=== PATIENT | male | born 1970 | race African-American/Black ===

== ENCOUNTER 2024-02-22 16:00 | Emergency (ER) | payer MEDICARE, OTHER, SELFPAY ==
[2024-02-22 16:05] VITALS: BP 137/85
--- NOTE | 2024-02-22 16:25 | EDRN ---
Harris Le PA in room w/ pt at this time.
--- NOTE | 2024-02-22 16:31 | ED.GENMED ---
History of Present Illness
General
Chief Complaint: Seizure
Time Seen by Provider: 02/22/24 16:01
History of Present Illness
History of Present Illness:
54-year-old male presents from a group living facility for evaluation after a seizure and resultant head injury. He is at his normal neurologic baseline currently. Has a known seizure disorder for which she takes lacosamide and Depakote. Saw his
neurologist this morning reportedly
Review of Systems
Review of Systems
Allergies reviewed?: Yes
All Other Systems: ROS reviewed and negative except as documented in HPI and ROS
Phy Exam
Physical Exam
Physical Exam:
GEN: Well appearing, NAD, WDWN
HEENT: Normocephalic and atraumatic, Oral mucosa moist, no scleral icterus, no nasal congestion
Cardiac: Regular rate
Lung: No respiratory distress, no tachypnea
MSK: No gross deformity or injuries
Skin: Good color, no pallor or jaundice, no rashes
Neuro: AO x3; CN II-XII grossly intact. BUE strength 5/5 in all cornejo, sensation intact and symmetric. BLE strength 5/5 in all cornejo, sensation intact and symmetric
Psych: Calm, cooperative
Course
Orders/Labs/Results
Orders:
Orders
02/22/24 17:06
Complete Blood Count/With Diff Urgent
Comprehensive Metabolic Panel Urgent
Depakane Urgent
02/22/24 18:27
Urinalysis Reflex To Culture Urgent
Date Specimen was Collected: 02/22/24
Time Specimen was Collected: 18:26
Abnormal Lab Results
02/22/24
17:06
RBC 4.21 L 10^6/uL
(4.70-6.10)
MCV 96.0 H fL
(80.0-94.0)
MCH 32.8 H pg
(27.0-31.0)
MPV 11.6 H fL
(7.4-10.4)
Absolute Lymphs (auto) 1.0 L 10^3/uL
(1.2-3.4)
Lymphocytes % 15.8 L %
(20.5-51.1)
Glucose 128 H mg/dl
(70-99)
02/22/24 17:06
02/22/24 17:06
Vital Signs
Initial and Last Documented VS:
Initial Vital Signs
Temp Pulse Resp BP Pulse Ox
98.7 F 75 16 137/85 98
02/22/24 16:05 02/22/24 16:05 02/22/24 16:05 02/22/24 16:05 02/22/24 16:05
Last Documented Vital Signs
Temp Pulse Resp BP Pulse Ox
98.7 F 78 18 127/84 99
02/22/24 16:05 02/22/24 19:15 02/22/24 19:15 02/22/24 19:15 02/22/24 19:15
MDM/Problems Addressed
MDM/Problems Addressed:
Patient remained at his neurologic baseline with no further seizure events in the ER. Do not see indication for CT of the head as there is no sign of intracranial trauma and no focal neurologic deficits. Discussed with his group living facility
nursing staff and recommend they follow-up with his neurologist to discuss if any further seizure medication adjustments would be warranted
*Critical Care Note
Total Time (30-74mins, 75-104mins- exclusive of procedures): Not Applicable
ED Attending Note
-
Portions of this chart may have been created with voice recognition software.� Occasional wrong word or��sound alike� substitutions may have occurred due to the inherent limitations of voice recognition software.
Discharge Plan
Departure
Patient Disposition: Home (Routine Discharge)
Date of Disposition: 02/22/24
Time of Disposition: 18:18
Patient with high blood pressure during this ER visit?: No
Discharge Problem:
Seizure
Instructions: Seizures, Adult (DC)
Prescriptions:
No Action
atorvastatin 40 mg tablet
40 mg PO HS
metformin 500 mg tablet
500 mg PO BID@0800,1700
divalproex 250 mg tablet,delayed release (DR/EC)
250 mg PO TID
lisinopril 20 mg tablet
20 mg PO DAILY
ibuprofen 600 mg tablet
600 mg PO Q6HPRN PRN (Reason: tooth pain)
cholecalciferol (vitamin D3) 50 mcg (2,000 unit) capsule
50 mcg PO DAILY
lacosamide 150 mg tablet
150 mg PO BID
Referrals:
Ferdinand Mohamud DO [Family Provider] -
Activity Restrictions/Additional Instructions:
Jason will need to follow up with his neurologist due to having multiple seizures in the last month despite normal depakote levels
Interventions
Interventions:
*Risk Screen - Suicide Last Done: 02/22/24 17:18
*General Assessment Last Done: 02/22/24 17:16
*Neglect/Abuse Screening Last Done: 02/22/24 17:18
ED- Fall Risk Assessment Last Done: 02/22/24 17:16
*ED COVID-19 Vaccine History Last Done: 02/22/24 17:16
*Nursing Disposition Last Done: 02/22/24 19:15
ED- Cardiac Assessment Last Done: 02/22/24 17:16
ED- Neurological Assessment Last Done: 02/22/24 17:16
ED- Pulmonary Assessment Last Done: 02/22/24 17:16
Discharge Date and Time
Discharge Date/Time: 02/22/24 19:15
Print Language: WOLOF
[2024-02-22 17:16] VITALS: BP 125/81
[2024-02-22 17:50] LABS: ALT (SGPT) 14 U/L (0-50); AST (SGOT) 17 U/L (17-59); Albumin 4.2 g/dl (3.5-5.0); Alkaline Phosphatase 50 U/L (38-126); Blood Urea Nitrogen 19 mg/dl (9-20); Calcium 9.7 mg/dl (8.4-10.2); Carbon Dioxide 29 mmol/L (22-30); Chloride 100 mmol/L (98-107); Glucose 128 mg/dl (70-99); Sodium 140 mmol/L (135-145); Total Bilirubin 0.2 mg/dl (0.2-1.3); Total Protein 6.3 g/dl (6.3-8.2); eGFR > 60.00
[2024-02-22 18:02] LABS: Depakane 68.2 ug/ml (50.0-120.0)
[2024-02-22 18:04] LABS: % Basophils 0.3 % (0-2); % Eosinophils 0.7 % (0-6); % Immature Granulocytes 0.5 % (0-0.5); % Lymphocytes 15.8 % (20.5-51.1); % Monocytes 7.5 % (1.7-9.3); % Neutrophils 75.2 % (42.2-75.2); Absolute Monocytes 0.5 10^3/uL (0.1-0.6); Absolute Neutrophils 4.6 10^3/uL (1.4-6.5); Hematocrit 40.4 % (39.0-52.0); Hemoglobin 13.8 g/dL (13.0-18.0); Mean Corp Hgb Conc. 34.2 g/dL (33.0-37.0); Mean Corpuscular Hgb 32.8 pg (27.0-31.0); Mean Platelet Volume 11.6 fL (7.4-10.4); Nucleated Red Blood Cells % 0 % (-); Platelet Count 158 10^3/uL (130-400); Red Blood Cell Count 4.21 10^6/uL (4.70-6.10); Red Cell Dist. Width 12.1 % (11.5-14.5); White Blood Cell Count 6.1 10^3/uL (4.8-10.8)
--- NOTE | 2024-02-22 18:24 | EDRN ---
is arranging discharge transport for pt back to [facility] at this time. Harris BOURNE gave discharge information to nurse at the facility at this time.
[2024-02-22 18:29] VITALS: BMI 21.5
[2024-02-22 18:38] LABS: Urine Albumin Negative (Neg - Trace); Urine Bilirubin Negative (Negative); Urine Character Clear (Clear); Urine Color Yellow; Urine Glucose Negative (Negative); Urine Ketone Negative (Negative); Urine Leukocyte Negative (Negative); Urine Nitrite Negative (Negative); Urine Occult Blood Negative (Negative); Urine Urobilinogen 1+ (Neg - 1+)
[2024-02-22 19:15] VITALS: BP 127/84
== END 2024-02-22 19:15 | disposition home or self-care (01) ==
LOC: EMR 16:00
PROVIDERS: Physician Assistant; EMERGENCY PHYSICIAN Student in an Organized Health Care Education/Training Program; FAMILY PHYSICIAN Internal Medicine Geriatric Medicine
DX: G40.909 Epilepsy, unspecified, not intractable, without status epilepticus (principal); S09.90XA Unspecified injury of head, initial encounter; X58.XXXA Exposure to other specified factors, initial encounter
CPT/HCPCS: 99283; 80053; 80164; 81003; 85025

== ENCOUNTER → 2024-03-13 10:43 | Outpatient (REF) | payer MEDICARE, OTHER, SELFPAY | LOC: HWRAD 10:43 | PROVIDERS: ATTENDING PHYSICIAN Internal Medicine Geriatric Medicine | DX: Z11.1 Encounter for screening for respiratory tuberculosis (principal) | CPT/HCPCS: 71046 ==